=== PATIENT | male | born 1940 | race Caucasian/White ===

== ENCOUNTER 2018-02-17 17:26 | Emergency (ER) | payer MEDICARE, OTHER ==
[~2018-02-17] VITALS: Ht 177.8 cm; Wt 109.3 kg
[2018-02-17 17:30] VITALS: BP 146/77
== END 2018-02-17 19:33 | disposition left against medical advice (07) ==
LOC: ER 17:26
DX: R11.10 Vomiting, unspecified (principal); Z53.21 Procedure and treatment not carried out due to patient leaving prior to being seen by health care provider

== ENCOUNTER 2023-01-16 17:41 | Inpatient (IN) | payer MEDICARE, OTHER ==
[~2023-01-16] VITALS: Ht 177.8 cm; Wt 81.4 kg
[2023-01-16 18:27] LABS: Urine Bacteria NONE SEEN /hpf (None Seen); Urine Blood 3+ /uL (Negative); Urine Clarity CLOUDY (Clear); Urine Protein, UAD 3+ (Negative); Urine Specific Gravity 1.022 (1.001-1.035); Urine Urobilinogen Normal (Negative); Urine WBC 1561 /hpf (0 - 3); Urine WBC Clumps PRESENT /hpf (None Seen)
[2023-01-16 18:32] LABS: Urine Color Yellow (Yellow)
[2023-01-16] MEDS ORDERED: cefTRIAXone 1GM/50ML D5W 50 ML IV ONE (22:15)
[2023-01-16 22:43] LABS: Basophils # (auto) 0 10 ^3/uL (0-0.2); Basophils % (auto) 0.2 % (0.0-2.0); Eosinophils # (auto) 0 10 ^3/uL (0-0.8); Eosinophils % (auto) 0.2 % (0.0-7.0); Hematocrit 50.8 % (41.0-53.0); Lymphocytes # (auto) 1.2 10 ^3/uL (0.4-5.4); Lymphocytes % (auto) 5.6 % (10.0-50.0); Mean Corpuscular Hemoglobin 29.4 pg (28.0-32.0); Mean Corpuscular Hgb Conc. 33.4 g/dL (32.0-36.0); Monocytes # (auto) 1.4 10 ^3/uL (0-1.3); Monocytes % (auto) 6.7 % (0.0-12.0); Neutrophils # (auto) 18.5 10 ^3/uL (1.6-8.6); Neutrophils % (auto) 87.3 % (37.0-80.0); Nucleated Red Blood Cells % 0.1 %; Red Blood Cells 5.78 10^6/uL (4.5-5.90); Red Cell Distribution Width 14.2 % (11.8-14.3); White Blood Cell 21.2 10^3/uL (4.4-10.8)
[2023-01-16 23:03] LABS: Alanine Aminotransferase 15 U/L (7-40); Albumin 5.1 g/dL (3.2-4.8); Alkaline Phosphatase 86 U/L (46-116); Aspartate Aminotransferase 10 U/L (13-40); BUN/Creatinine Ratio 10.9 (10.0-20.0); Blood Urea Nitrogen 21 mg/dL (9-23); Calcium 10.3 mg/dL (8.7-10.4); Chloride 102 mmol/L (98-107); Glucose 180 mg/dL (74-106); Potassium 4.1 mmol/L (3.5-5.1); Sodium 138 mmol/L (136-145)
[2023-01-16 23:04] LABS: Bilirubin, Total 0.7 mg/dL (0.2-1.0); Total Protein 8.1 g/dL (5.7-8.2)
[2023-01-17] VITALS (7 sets, daily range): BP systolic 110–127; BP diastolic 61–72; PULSE 87–96; RESP 16–20; TEMP 98.1–98.3; O2SAT 94–96
[2023-01-17] MEDS: cloNIDine HCL 0.1 MG TAB PO SCH ×3 (06:51→21:27)
[2023-01-17] MEDS ORDERED: ACETAMINOPHEN 325 MG TAB PO PRN (07:15)
[2023-01-17] MEDS ORDERED: ONDANSETRON HCL 4 MG/2 ML VIAL IV PRN (07:15)
[2023-01-17] MEDS: CARVEDILOL 12.5 MG TAB PO SCH ×2 (10:40→21:13)
[2023-01-17] MEDS: CLOPIDOGREL BISULFATE 75 MG TAB PO SCH (10:40)
[2023-01-17] MEDS: TRIAMTERENE/HCTZ 37.5/25 MG CAP/TAB PO SCH (10:41)
[2023-01-17] MEDS ORDERED: PANT40T PO (11:51)
[2023-01-17] MEDS ORDERED: BUPR150T18 PO (11:51)
[2023-01-17] MEDS ORDERED: CLOP75TA70 PO (11:51)
[2023-01-17] MEDS ORDERED: GLIP10TA9 PO (11:51)
[2023-01-17] MEDS ORDERED: METF-869 PO (11:51)
[2023-01-17] MEDS ORDERED: ENAL1TAB48 PO (11:51)
[2023-01-17] MEDS ORDERED: EMPA1TAB PO (11:51)
[2023-01-17] MEDS ORDERED: SIMV20TA20 PO (11:51)
[2023-01-17] MEDS ORDERED: CLON0.3T PO (11:51)
[2023-01-17] MEDS ORDERED: CARV25TA55 PO (11:51)
[2023-01-17] MEDS ORDERED: OLME1TAB73 PO (11:51)
[2023-01-17] MEDS ORDERED: DEXTROSE (50%) 50ML SYRG IV PRN (16:00)
[2023-01-17] MEDS: ACCU-CHEK COMFORT CURVE STRIP VI SCH ×2 (17:18→21:14)
[2023-01-17] MEDS: InsuLIN REG 1unit/0.01ml Soln (100units/ml) SC SCH ×2 (17:18→21:26)
[2023-01-17] MEDS: ATORVASTATIN 20 MG TAB PO SCH (21:13)
[2023-01-17] MEDS: cefTRIAXone 1GM/50ML D5W 50 ML IV SCH (21:14)
[2023-01-18] VITALS (7 sets, daily range): BP systolic 112–164; BP diastolic 70–101; PULSE 92–105; RESP 16–20; TEMP 97.4–98.7; O2SAT 93–100
[2023-01-18] MEDS: cloNIDine HCL 0.1 MG TAB PO SCH ×3 (05:49→21:32)
[2023-01-18] MEDS: InsuLIN REG 1unit/0.01ml Soln (100units/ml) SC SCH ×4 (06:22→21:40)
[2023-01-18] MEDS: ACCU-CHEK COMFORT CURVE STRIP VI SCH ×4 (06:22→21:32)
[2023-01-18 06:54] LABS: Basophils # (auto) 0 10 ^3/uL (0-0.2); Basophils % (auto) 0.5 % (0.0-2.0); Eosinophils # (auto) 0 10 ^3/uL (0-0.8); Eosinophils % (auto) 0.5 % (0.0-7.0); Hematocrit 45.8 % (41.0-53.0); Hemoglobin 15.5 g/dL (13.5-17.5); Lymphocytes # (auto) 1.3 10 ^3/uL (0.4-5.4); Lymphocytes % (auto) 12.9 % (10.0-50.0); Mean Corpuscular Hemoglobin 30.1 pg (28.0-32.0); Mean Corpuscular Hgb Conc. 33.9 g/dL (32.0-36.0); Mean Corpuscular Volume 88.7 fL (80.0-100.0); Monocytes # (auto) 1.2 10 ^3/uL (0-1.3); Monocytes % (auto) 11.6 % (0.0-12.0); Neutrophils # (auto) 7.5 10 ^3/uL (1.6-8.6); Neutrophils % (auto) 74.5 % (37.0-80.0); Red Blood Cells 5.16 10^6/uL (4.5-5.90); Red Cell Distribution Width 14.1 % (11.8-14.3)
[2023-01-18 07:22] LABS: Alanine Aminotransferase 11 U/L (7-40); Albumin 4.5 g/dL (3.2-4.8); Alkaline Phosphatase 64 U/L (46-116); Anion Gap 11.9 (5-15); Aspartate Aminotransferase 13 U/L (13-40); BUN/Creatinine Ratio 12.8 (10.0-20.0); Bilirubin, Total 0.6 mg/dL (0.2-1.0); Blood Urea Nitrogen 21 mg/dL (9-23); Calcium 9.7 mg/dL (8.5-10.1); Carbon Dioxide 23.1 mmol/L (20-30); Chloride 101 mmol/L (98-107); Glucose 160 mg/dL (74-106); Potassium 3.5 mmol/L (3.5-5.1); Sodium 136 mmol/L (136-145); Total Protein 7.2 g/dL (5.7-8.2)
[2023-01-18] MEDS: CARVEDILOL 12.5 MG TAB PO SCH ×2 (09:12→21:32)
[2023-01-18] MEDS: CLOPIDOGREL BISULFATE 75 MG TAB PO SCH (09:13)
[2023-01-18] MEDS: TRIAMTERENE/HCTZ 37.5/25 MG CAP/TAB PO SCH (09:13)
[2023-01-18] MEDS ORDERED: CYANOCOBALAMIN (B-12) 1000 MCG/1 ML VIAL IM ONE (19:15)
[2023-01-18] MEDS ORDERED: SODIUM CHLORIDE 0.9% 1,000 ML IV ONE (19:30)
[2023-01-18] MEDS: cefTRIAXone 1GM/50ML D5W 50 ML IV SCH (21:31)
[2023-01-18] MEDS: ATORVASTATIN 20 MG TAB PO SCH (21:32)
[2023-01-18 22:22] LABS: Barbiturate Scree,Urine Neg (NEGATIVE)
[2023-01-18 22:46] LABS: Amphetamine Screen, Urine Neg (NEGATIVE); Benzodiazephine Screen, Urine Neg (NEGATIVE); Cannabinoid Screen, Urine Neg (NEGATIVE); Cocaine Screen, Urine Neg (NEGATIVE); Opiate Scree,Urine Neg (NEGATIVE); Phencyclidine Screen, Urine Neg (NEGATIVE)
[2023-01-19 05:00] VITALS: BP 129/79; PULSE 87; RESP 16; TEMP 98.3; O2SAT 93
[2023-01-19] MEDS: cloNIDine HCL 0.1 MG TAB PO SCH ×2 (05:59→14:25)
[2023-01-19 06:03] LABS: Basophils # (auto) 0.1 10 ^3/uL (0-0.2); Basophils % (auto) 0.7 % (0.0-2.0); Eosinophils # (auto) 0.2 10 ^3/uL (0-0.8); Eosinophils % (auto) 1.4 % (0.0-7.0); Hematocrit 44.8 % (41.0-53.0); Hemoglobin 15.1 g/dL (13.5-17.5); Lymphocytes # (auto) 1.9 10 ^3/uL (0.4-5.4); Lymphocytes % (auto) 16.8 % (10.0-50.0); Mean Corpuscular Hemoglobin 29.6 pg (28.0-32.0); Mean Corpuscular Hgb Conc. 33.7 g/dL (32.0-36.0); Mean Corpuscular Volume 87.8 fL (80.0-100.0); Monocytes # (auto) 1.8 10 ^3/uL (0-1.3); Monocytes % (auto) 15.5 % (0.0-12.0); Neutrophils # (auto) 7.5 10 ^3/uL (1.6-8.6); Neutrophils % (auto) 65.6 % (37.0-80.0); Red Cell Distribution Width 13.7 % (11.8-14.3); White Blood Cell 11.4 10^3/uL (4.4-10.8)
[2023-01-19] MEDS: ACCU-CHEK COMFORT CURVE STRIP VI SCH ×2 (06:10→11:59)
[2023-01-19] MEDS: InsuLIN REG 1unit/0.01ml Soln (100units/ml) SC SCH ×2 (06:12→12:01)
[2023-01-19 06:13] LABS: Anion Gap 11.4 (5-15); Carbon Dioxide 23.6 mmol/L (20-30); Chloride 100 mmol/L (98-107); Potassium 3.3 mmol/L (3.5-5.1); Sodium 135 mmol/L (136-145)
[2023-01-19 06:14] LABS: Calcium 9.4 mg/dL (8.5-10.1)
[2023-01-19 06:18] LABS: Glucose 177 mg/dL (74-106)
[2023-01-19 06:19] LABS: BUN/Creatinine Ratio 12.6 (10.0-20.0); Blood Urea Nitrogen 20 mg/dL (9-23)
[2023-01-19 08:00] VITALS: RESP 20; O2SAT 94
[2023-01-19] MEDS ORDERED: POTASSIUM CHL 20 Meq TABLET PO ONE (08:30)
[2023-01-19 09:00] VITALS: BP 121/67; PULSE 84; RESP 20; TEMP 98; O2SAT 94
[2023-01-19] MEDS: CARVEDILOL 12.5 MG TAB PO SCH (09:53)
[2023-01-19] MEDS: TRIAMTERENE/HCTZ 37.5/25 MG CAP/TAB PO SCH (09:54)
[2023-01-19] MEDS ORDERED: CYANOCOBALAMIN (B-12) 1000 MCG/1 ML VIAL IM SCH (10:00)
[2023-01-19] MEDS ORDERED: EMPAGLIFLOZIN 10 MG TAB PO SCH (10:00)
[2023-01-19] MEDS ORDERED: PANTOPRAZOLE 40 MG TAB PO SCH (10:00)
[2023-01-19] MEDS ORDERED: CEPH500C PO (11:13)
[2023-01-19] MEDS ORDERED: DOCU-94 PO (11:14)
[2023-01-19 13:00] VITALS: BP 110/64; PULSE 91; RESP 20; TEMP 98.1; O2SAT 95
[2023-01-19 14:25] VITALS: BP 110/64; PULSE 91; RESP 20; TEMP 98.1; O2SAT 95
== END 2023-01-19 16:26 | disposition home or self-care (01) | DRG 872 ==
LOC: ER 17:41 → OVERFLOW 01-17 07:16 → WEST WING 01-17 11:57
PROVIDERS: ADMIT Internal Medicine; ATTEND Internal Medicine
DX: A41.9 Sepsis, unspecified organism (principal); N17.9 Acute kidney failure, unspecified; N13.6 Pyonephrosis; E11.22 Type 2 diabetes mellitus with diabetic chronic kidney disease; N18.32 Chronic kidney disease, stage 3b; I13.10 Hypertensive heart and chronic kidney disease without heart failure, with stage 1 through stage 4 chronic kidney disease, or unspecified chronic kidney disease; E87.6 Hypokalemia; E66.3 Overweight; E11.42 Type 2 diabetes mellitus with diabetic polyneuropathy; Z86.73 Personal history of transient ischemic attack (TIA), and cerebral infarction without residual deficits; Z91.013 Allergy to seafood; Z68.25 Body mass index [BMI] 25.0-25.9, adult
CPT/HCPCS: 36415; 74176; 80048; 80053; 80307; 81001; 82043; 82607; 82652; 82962; 83036; 84300; 84443; 85025; 87086; 96365; G0378; J0696; J1815